=== PATIENT | male | born 1955 | race Caucasian/White ===

== ENCOUNTER → 2020-10-17 13:37 | Outpatient (CLI) | payer OTHER, SELFPAY ==
--- NOTE | 2020-10-17 13:39 | DI.RAD.S_ITS ---
PROCEDURE: XR KNEE LT 3V INDICATIONS: Bilateral knee pain TECHNIQUE: 3 views of the knee were acquired. COMPARISON: None. FINDINGS: Bones: No fractures or dislocations. No suspicious bony lesions. There is minimal medial/lateral and patellofemoral compartment narrowing. Soft tissues: Minimal to mild joint effusion. No suspicious soft tissue calcifications. IMPRESSION: Minimal to mild medial and lateral as well as patellofemoral compartment narrowing most consistent with arthritis.. Dictated by: Leola Gibbons M.D. on 10/17/2020 at 17:11 Approved by: Leola Gibbons M.D. on 10/17/2020 at 17:11
--- NOTE | 2020-10-17 13:39 | DI.RAD.S_ITS ---
PROCEDURE: XR KNEE RT 3V INDICATIONS: Bilateral knee pain TECHNIQUE: 3 views of the knee were acquired. COMPARISON: None. FINDINGS: Bones: No fractures or dislocations. No suspicious bony lesions. Minimal to mild medial, lateral patellofemoral compartment narrowing. No erosions. Soft tissues: Minimal to mild joint effusion. No suspicious soft tissue calcifications. IMPRESSION: Minimal mild tricompartmental arthritis. Dictated by: Leola Gibbons M.D. on 10/17/2020 at 17:12 Approved by: Leola Gibbons M.D. on 10/17/2020 at 17:12
== END ==
PROVIDERS: PCP Family Medicine; Referring Provider Family Medicine; Visit Provider Family Medicine
DX: M17.0 Bilateral primary osteoarthritis of knee (principal); M25.562 Pain in left knee; M25.561 Pain in right knee
CPT/HCPCS: 73562

== ENCOUNTER → 2020-10-19 10:14 | Outpatient (CLI) | payer OTHER, SELFPAY ==
[2020-10-19 11:18] LABS: Hemoglobin A1C% w Est Avg Glu 5.7 % (4.0-6.0)
[2020-10-19 11:37] LABS: Alanine Aminotransferase 32 IU/L (<50); Albumin 4.3 g/dL (3.5-5.0); Albumin Globulin Ratio 1.4 (1.0-2.8); Alkaline Phosphatase 67 U/L (38-126); Aspartate Aminotransferase 31 IU/L (17-59); BUN Creatinine Ratio 13.6 (6-22); Bilirubin Total 0.4 mg/dL (0.2-1.3); Blood Urea Nitrogen 19 mg/dL (9-20); Calcium 9.5 mg/dL (8.4-10.2); Carbon Dioxide 29 mmol/L (22-32); Chloride 102 mmol/L (98-107); Cholesterol 211 mg/dL (140-199); Globulin 3.1 g/dL (1.7-4.1); Glucose 93 mg/dL (80-110); HDL Cholesterol 39 mg/dL (40-60); HEMOLYSIS < 15 (0-50); LDL Cholesterol Calculated 141 mg/dL (<100); Potassium 4.5 mmol/L (3.4-5.1); Sodium 140 mmol/L (137-145); Total Protein 7.4 g/dL (6.3-8.2); Triglycerides 157 mg/dL (35-150)
[2020-10-19 12:08] LABS: Prostate Specific Antigen Scrn 0.957 ng/mL (0.1-4.0)
== END ==
PROVIDERS: PCP Family Medicine; Referring Provider Family Medicine; Visit Provider Family Medicine
DX: M17.0 Bilateral primary osteoarthritis of knee (principal); Z12.5 Encounter for screening for malignant neoplasm of prostate
CPT/HCPCS: 36415; 80053; 80061; 83036; G0103

== ENCOUNTER → 2020-11-16 16:07 | Outpatient (CLI) | payer OTHER, SELFPAY ==
--- NOTE | 2020-11-16 16:09 | DI.US.S_ITS ---
PROCEDURE: US ABDOMEN LIMITED INDICATIONS: right inguinal hernia TECHNIQUE: Real-time focused scanning was performed of the abdomen, with image documentation. COMPARISON: None. FINDINGS: No right inguinal hernia defect identified. Right testicle is within the right inguinal canal compatible with cryptorchidism. Right testicle measures 3.1 x 1.4 x 2.4 centimeters. Left testicle is normally situated within the scrotum. Left testicle measures 4.5 x 2.2 x 2.8 centimeters. IMPRESSION: Right cryptorchidism. Recommend urologic surgery consultation. Dictated by: Samantha Segal MD, PhD on 11/16/2020 at 17:01 Approved by: Samantha Segal MD, PhD on 11/16/2020 at 17:06
== END ==
PROVIDERS: PCP Family Medicine; Referring Provider Family Medicine; Visit Provider Family Medicine
DX: K40.90 Unilateral inguinal hernia, without obstruction or gangrene, not specified as recurrent (principal)
CPT/HCPCS: 76705

== ENCOUNTER → 2022-09-05 10:21 | Outpatient (CLI) | payer MEDICARE, OTHER, SELFPAY ==
[2022-09-05 11:24] LABS: Add Manual Diff / Slide Review NO; Basophils Absolute Auto 100 /uL (0-100); Eosinophils Absolute Auto 100 /uL (0-450); Eosinophils Percent Auto 2.2 % (2-4); Hematocrit 45.7 % (41-53); Hemoglobin 15.4 g/dL (13.5-17.5); Lymphocytes Absolute Auto 1700 /uL (1100-4500); Lymphocytes Percent Auto 26.7 % (25-40); Mean Corpuscular HGB Conc 33.7 % (30-36); Mean Corpuscular Hemoglobin 28.6 PG (26-34); Mean Corpuscular Volume 84.8 fL (80-100); Monocytes Absolute Auto 700 /uL (0-900); Monocytes Percent Auto 11.2 % (3-14); Neutrophils Absolute Auto 3700 /uL (1500-7000); Neutrophils Percent Auto 58.9 % (50-75); Platelet Count 219 X10^3/uL (150-400); Red Blood Cell Count 5.39 X10^6/uL (4.5-5.9); Red Cell Distribution Width 14.3 % (11.6-14.8); White Blood Cell Count 6.2 X10^3/uL (4.5-11.0)
[2022-09-05 11:44] LABS: Alanine Aminotransferase 33 IU/L (<50); Albumin 4.4 g/dL (3.5-5.0); Albumin Globulin Ratio 1.1 (1.0-2.8); Alkaline Phosphatase 66 U/L (38-126); Aspartate Aminotransferase 31 IU/L (17-59); BUN Creatinine Ratio 18.1 (6-22); Bilirubin Total 0.7 mg/dL (0.2-1.3); Blood Urea Nitrogen 21 mg/dL (9-20); Calcium 9.3 mg/dL (8.4-10.2); Carbon Dioxide 29 mmol/L (22-32); Chloride 101 mmol/L (98-107); Cholesterol 220 mg/dL (140-199); Estimated Glomerular Filt Rate > 60 mL/min (>60); Globulin 3.9 g/dL (1.7-4.1); Glucose 93 mg/dL (80-110); HDL Cholesterol 38 mg/dL (40-60); HEMOLYSIS < 15 (0-50); LDL Cholesterol Calculated 154 mg/dL (<100); Potassium 4.2 mmol/L (3.4-5.1); Sodium 142 mmol/L (137-145); Total Protein 8.3 g/dL (6.3-8.2); Triglycerides 141 mg/dL (35-150)
[2022-09-05 12:15] LABS: Prostate Specific Antigen Scrn 0.802 ng/mL (0.1-4.0)
[2022-09-05 12:18] LABS: TSH w/ Reflex to FT4 1.59 uIU/mL (0.47-4.68)
[2022-09-05 12:25] LABS: Creatinine Urine Random 25.5 mg/dL
[2022-09-05 12:30] LABS: Microalbumin Urine Random < 0.6 mg/dL (0-1.6)
== END ==
PROVIDERS: PCP Family Medicine; Referring Provider Family Medicine; Visit Provider Family Medicine
DX: E55.9 Vitamin D deficiency, unspecified (principal); E78.5 Hyperlipidemia, unspecified; Z12.5 Encounter for screening for malignant neoplasm of prostate; K21.9 Gastro-esophageal reflux disease without esophagitis; R79.89 Other specified abnormal findings of blood chemistry
CPT/HCPCS: 36415; 80053; 80061; 82043; 82570; 84443; 85025; G0103

== ENCOUNTER → 2022-10-01 06:28 | Outpatient (CLI) | payer MEDICARE, OTHER, SELFPAY ==
--- NOTE | 2022-10-01 06:29 | DI.US.S_ITS ---
PROCEDURE: US SCROTUM INDICATIONS: RIGHT GROIN LUMP. ACQUIRED CRYTPORCHIDISM. TECHNIQUE: Real-time scanning was performed of the scrotum and testicles, with image documentation. Color and pulse Doppler interrogation was performed of both testicles. COMPARISON: None. FINDINGS: Right: Testicle is normal in size at 3.4 x 2.4 x 1.8 cm, and homogenous in echotexture. Minimal vasculature. Epididymis is normal in overall size and morphology. No hydrocele or varicoceles. Overlying scrotal skin is normal in thickness. Left: Testicle is normal in size at 4.1 x 2.8 x 2.2 cm, and homogeneous in echotexture. Epididymis is normal in overall size and morphology. No hydrocele or varicoceles. Overlying scrotal skin is normal in thickness. Doppler: Color and pulse Doppler demonstrate normal and symmetric arterial flow in both testicles. Other: Fat containing right inguinal hernia, partially reducible. The neck measures 2.3 x 2.1 cm. IMPRESSION: 1. Fat containing right inguinal hernia, partially reducible. The neck measures 2.3 x 2.1 cm. 2. Normal location of the right testicle, without mass. Dictated by: Darren Tovar M.D. on 10/01/2022 at 10:33 Approved by: Darren Tovar M.D. on 10/01/2022 at 10:35
== END ==
PROVIDERS: PCP Family Medicine; Referring Provider Family Medicine; Visit Provider Family Medicine
DX: N50.89 Other specified disorders of the male genital organs (principal); K40.30 Unilateral inguinal hernia, with obstruction, without gangrene, not specified as recurrent
CPT/HCPCS: 76870; 93975

== ENCOUNTER 2022-10-02 07:40 | Day surgery (SDC) | payer MEDICARE, OTHER, SELFPAY ==
--- NOTE | 2022-10-02 | PATH_ITS ---
[facility] Accession Number: [id number] No. of containers..02 Tissue . 01 Material submitted: . PART A: colon - ASCENDING POLYPS PART B: colon - DESCENDING POLYP . 01 Clinical history: . COLONOSCOPY . 01 Diagnosis: A. Ascending Colon, Polyps, Biopsies: Tubular adenomas. . B. Descending Colon, Polyp, Biopsy: Hyperplastic polyp. [facility] 10/07/2022 1145 Local . 01 Electronically signed: . Soledad Alcocer MD, Pathologist NPI- [id number] . 01 Gross description: . A. Received in formalin, labeled ascending polyps, are 3-5 mm portions of wang tissue. Totally embedded in cassette A1. B. Received in formalin, labeled descending polyp, are three 1 mm and 2 mm portions of wang tissue. Totally embedded in cassette B1. ([id number]) /Paul 10/04/2022 1633 Local . 01 Pathologist provided ICD-10: D12.2 . 01 CPT . 996561, [id number] Specimen Comment: A courtesy copy of this report has been sent to [phone] Performed at: 01 [facility] [address] [place] [address] [id number] MD Bryan Mcneal MD Phone: [phone]
[2022-10-02 08:08] VITALS: BMI 32.5
[2022-10-02 08:20] VITALS: BP 129/79; PULSE 72; RESP 16; TEMP 36.4; O2SAT 97
[2022-10-02] MEDS: LACTATED RINGERS 1,000 ML 42 ML IV (08:23)
--- NOTE | 2022-10-02 09:05 | PM.HP.1 ---
History of Present Illness History of Present Illness Date Patient Seen: 10/02/22 Time Patient Seen: 09:05 Chief complaint: Colonoscopy Narrative: Nilesh is a 67 year man here for colonoscopy. His last 1 was about 10 years ago and was normal. He has no known family history of colon cancer. No GI or bowel issues. Patient History Medical History (Updated 10/02/22 @ 09:06 by Uziel Caldwell MD) Acquired cryptorchidism of right testis Actinic keratosis Chicken pox Elevated serum creatinine GERD (gastroesophageal reflux disease) Hyperlipidemia Trigger finger of right hand Vitamin D deficiency Surgical History (Updated 10/30/20 @ 22:40 by Bronwyn Bowles) Anesthesia History of hand surgery (~2014) History of testicular surgery (~1963) Family & Social History Family History (Updated 10/30/20 @ 22:41 by Bronwyn Bowles) Father Cancer Hypertension Hyperlipidemia Brother Hypertension Hyperlipidemia Brother Hypertension Hyperlipidemia Social History: household members spouse Tobacco & Substance use: Smoking Status Never smoker alcohol intake never Substance Use Type does not use Meds Home Medications and Allergies Home Medications Medication Instructions Recorded Confirmed Type cholecalciferol (vitamin D3) 125 125 mcg PO DAILY 10/17/20 10/02/22 History mcg (5,000 unit) capsule rabeprazole 20 mg tablet,delayed 40 mg PO DAILY #180 tabs 07/28/22 10/02/22 Rx release rosuvastatin 10 mg tablet (Crestor) 10 mg PO DAILY #90 tabs 09/05/22 10/02/22 Rx Allergies Allergy/AdvReac Type Severity Reaction Status Date / Time No Known Drug Allergies Allergy Verified 10/02/22 07:56 Exam Vital Signs (past 8 hours): - 10/02/22 08:20 Temperature 97.6 F Pulse Rate 72 Respiratory Rate 16 Blood Pressure 129/79 Pulse Oximetry 97 Oxygen Delivery Method Room Air Oxygen Delivery Method Room Air Const General: No acute distress Resp Effort & Inspection: normal respiratory effort Assessment & Plan Assessment and plan (1) Colon cancer screening: Status: Acute Plan Risks and benefits of colonoscopy reviewed and he would like to proceed. Time Spent With Patient Critical Care time: I spent a total of [] minutes of critical care time on this patient's care today; this time is exclusive of procedural time.
--- NOTE | 2022-10-02 09:36 | PM.OP.COLON ---
Operative Date/Time/Diagnoses Date of procedure: 10/02/22 Time of procedure: 09:36 Pre-op diagnosis: Colon cancer screening Post-op diagnosis: same Procedure & Clinicians Study performed: Colonoscopy Same procedure as scheduled: Yes Surgeon: Uziel Caldwell Procedure Notes Procedure in detail: Surgeon: Uzeil Caldwell MD Anesthesia: Jesús Perez CRNA Procedure: The patient was brought to the endoscopy suite, placed in left lateral decubitus position. The patient was connected to monitoring devices. A time-out was performed. Sedation was administered. Once the patient was adequately sedated, a digital rectal exam was performed and was normal. The scope was then inserted and advanced to the cecum where the appendiceal orifice was identified and photographed. The scope was then slowly withdrawn over greater than 6 minutes. The mucosa was thoroughly inspected. There were 2 7 mm polyps in the ascending colon removed with cold snare and sent together. There was a 4 mm polyp in the descending colon removed with a cold snare. The scope was retroflexed in the rectum. No other abnormalities were seen. The scope was straightened and removed. The patient was awakened and brought to recovery. Scope withdrawal time: 11 minutes Sedation time: 15 minutes EBL: 5 mL Findings: 2 7 mm polyps in the ascending colon and a 4 mm polyp in the descending colon Post-procedure Disposition: PACU
[2022-10-02 09:38] VITALS: BP 107/61; PULSE 68; RESP 12; TEMP 36.5; O2SAT 99
[2022-10-02 09:44] VITALS: PULSE 81; RESP 20; O2SAT 100
[2022-10-02 09:45] VITALS: BP 117/79
[2022-10-02 09:48] VITALS: BP 134/85; PULSE 69; RESP 15; TEMP 36.4; O2SAT 98
== END 2022-10-02 10:00 | disposition home or self-care (01) ==
PROVIDERS: PCP Family Medicine; Referring Provider Surgery; Visit Provider Surgery
PROC: 0DJD8ZZ Inspection of Lower Intestinal Tract, Via Natural or Artificial Opening Endoscopic (ICD-10-PCS; CPT 45378; principal; 2022-10-02 08:45)
DX: Z12.11 Encounter for screening for malignant neoplasm of colon (principal); D12.2 Benign neoplasm of ascending colon
CPT/HCPCS: 45385; J2704

== ENCOUNTER 2022-10-28 10:57 | Day surgery (SDC) | payer MEDICARE, OTHER, SELFPAY ==
[2022-10-21 08:32] VITALS: BMI 36.6
[2022-10-28] VITALS (8 sets, daily range): BP systolic 117–157; BP diastolic 64–87; PULSE 62–731; RESP 10–16; TEMP 36.4–37.1; O2SAT 94–98; BMI 36.6
[2022-10-28] MEDS: LACTATED RINGERS 1,000 ML 42 ML IV ×2 (11:34→13:09)
[2022-10-28] MEDS: ACETAMINOPHEN 325 MG TABLET 975 MG PO (11:34)
--- NOTE | 2022-10-28 11:58 | PM.PREOP ---
Pre-operative Note COVID-19 COVID-19 status: Not tested Interval Note History & Physical reviewed/Exam performed by Physician: Yes Changes to H&P: No ASA Class (for procedural sedation): II
[2022-10-28] MEDS: CEFAZOLIN 2 GM/100 ML PREMIX 100 ML IV (12:17)
--- NOTE | 2022-10-28 12:36 | SUR.OPER ---
Supine on padded OR bed, head on pillow, arms secured on padded arm boards at <90 degrees abduction, legs uncrossed, safety belt at thigh, tape over blanket over lower legs.
[2022-10-28] MEDS: BUPIVACAINE 0.25% (PF) 30 ML, EPINEPHrine 0.15 MG INJ (12:43)
--- NOTE | 2022-10-28 14:03 | PM.OP.1 ---
Operative Date/Time/Diagnoses Date of procedure: 10/28/22 Time of procedure: 14:03 Pre-op diagnosis: Right inguinal hernia Post-op diagnosis: same Procedure & Clinicians Procedure: Open right inguinal hernia repair with mesh Same procedure as scheduled: Yes Surgeon: Uziel Caldwell Operative Notes Procedure in detail: Preoperative antibiotic was administered. The patient was brought to the operating room and placed on the table in supine position general anesthesia was induced. The large right inguinal hernia was able to be partially reduced after induction of anesthesia. The right groin was prepped and draped in the normal fashion and a time-out was performed. Roughly 10 mL of local anesthetic were injected into the skin and subcutaneous adipose tissue over the right groin. A 9 cm incision was made over the right inguinal canal. Dissection was carried down through the subcutaneous adipose tissue. We exposed the external oblique aponeurosis in the direction of the fibers. Additional local was injected deep to the aponeurosis. A 15 blade scalpel was used to kasey the external oblique aponeurosis. Metzenbaum scissors were used to carefully open the aponeurosis in the direction of the fibers taking care not to injure the underlying ilioinguinal nerve. There was fibrosis from prior surgery which made the tissue planes somewhat difficult to identify initially. After tedious dissection the inguinal canal was completely exposed.. The cord was dissected free from the inguinal ligament and floor of the inguinal canal and the external oblique aponeurosis was dissected off of the internal oblique taking care not to injure the hypogastric nerve. We encircled the cord with a [place] drain for retraction. There was a large direct defect containing fat as well as a significant indirect component. The patient was placed in Trendelenburg and paralyzed to allow reduction of the hernia contents. The sac was opened to ensure there was no sliding component and amputated and closed with a running 3-0 Vicryl. The sac was allowed to drop back into the abdomen. We then placed a polypropylene mesh against the floor of the inguinal canal. The mesh was secured with multiple interrupted 3-0 Prolene sutures to the pubic tubercle and shelving edge of the inguinal ligament as well as to the conjoint tendon medially. We overlapped the tails to recreate an internal ring and secured the medial tail to the inguinal ligament with additional sutures. We injected some more local into the fatty tissue in the inguinal canal and cord. Finally, we removed the [place] drain and closed the external oblique fascia with a running 3-0 Vicryl suture. Skin was closed with interrupted 3-0 Vicryl dermal sutures and a running 4 Monocryl subcuticular stitch. At the conclusion of the hernia repair Dr. Nye came into the room to examine the scrotum and determined that the right testicle was in the appropriate location and did not need additional pexy. EBL 15 mL The patient was awakened and brought to recovery room. Post-operative Condition: stable Disposition: PACU
[2022-10-28] MEDS: OXYCODONE IR 5 MG TABLET PO ×2 (14:35→15:09)
--- NOTE | 2022-10-28 14:37 | SUR.PHASEI ---
Pt received to PACU after general anesthesia. Oral airway in place. No further airway support required. Report received from DIPTI Webb and Valentín Beauchamp CRNA.
== END 2022-10-28 15:16 | disposition home or self-care (01) ==
PROVIDERS: PCP Family Medicine; Referring Provider Surgery; Visit Provider Surgery
PROC: (CPT 49505; principal; 2022-10-28 12:15)
DX: K40.90 Unilateral inguinal hernia, without obstruction or gangrene, not specified as recurrent (principal)
CPT/HCPCS: 49505; 82962; J0171; J0330; J0690; J1100; J2405; J2704; J3010

== ENCOUNTER → 2023-03-20 11:41 | Outpatient (CLI) | payer MEDICARE, OTHER, SELFPAY ==
[2023-03-20 13:44] LABS: Cholesterol 146 mg/dL (140-199); HDL Cholesterol 40 mg/dL (40-60); LDL Cholesterol Calculated 88 mg/dL (<100); Triglycerides 90 mg/dL (35-150)
== END ==
PROVIDERS: PCP Family Medicine; Referring Provider Family Medicine; Visit Provider Family Medicine
DX: E78.5 Hyperlipidemia, unspecified (principal)
CPT/HCPCS: 36415; 80061

== ENCOUNTER → 2023-12-31 15:53 | Outpatient (CLI) | payer MEDICARE, OTHER, SELFPAY ==
--- NOTE | 2023-12-31 15:55 | DI.RAD.S_ITS ---
PROCEDURE: XR HIP W PEL IF DONE WINTER MIN 4V INDICATIONS: bilateral hip pain TECHNIQUE: AP pelvis with lateral views of the right and left hips. COMPARISON: None. FINDINGS: Bones: No acute fractures or dislocations. Pelvic ring appears intact. No suspicious bony lesions. Minimal degenerative spurring at the lateral acetabular. Mild degenerative changes are seen in the lumbar spine. Soft tissues: The visualized bowel gas pattern is normal. No suspicious soft tissue calcifications. IMPRESSION: Minimal osteoarthrosis. No acute osseous abnormality. If symptoms persist or if there is continued clinical concern, cross-sectional imaging such as MRI or CT may be helpful for further evaluation. Approved by: Hiren Pablo M.D. on 12/31/2023 at 22:02
== END ==
PROVIDERS: PCP Family Medicine; Referring Provider Family Medicine; Visit Provider Family Medicine
DX: M25.551 Pain in right hip (principal); M25.552 Pain in left hip
CPT/HCPCS: 73522

== ENCOUNTER → 2024-01-06 07:20 | Outpatient (CLI) | payer MEDICARE, OTHER, SELFPAY ==
[2024-01-06 07:53] LABS: Add Manual Diff / Slide Review NO; Basophils Absolute Auto 0 /uL (0-100); Basophils Percent Auto 0.6 % (0-2); Eosinophils Absolute Auto 200 /uL (0-450); Eosinophils Percent Auto 3.1 % (2-4); Hematocrit 42.8 % (41-53); Hemoglobin 14.3 g/dL (13.5-17.5); Lymphocytes Absolute Auto 1300 /uL (1100-4500); Lymphocytes Percent Auto 26.7 % (25-40); Mean Corpuscular HGB Conc 33.3 % (30-36); Mean Corpuscular Hemoglobin 28.6 PG (26-34); Mean Corpuscular Volume 85.8 fL (80-100); Monocytes Absolute Auto 700 /uL (0-900); Monocytes Percent Auto 13.5 % (3-14); Neutrophils Absolute Auto 2800 /uL (1500-7000); Neutrophils Percent Auto 56.1 % (50-75); Platelet Count 203 X10^3/uL (150-400); Red Blood Cell Count 4.99 X10^6/uL (4.5-5.9); Red Cell Distribution Width 14.5 % (11.6-14.8)
[2024-01-06 08:15] LABS: Creatinine Urine Random 169.56 mg/dL
[2024-01-06 08:19] LABS: Alanine Aminotransferase 30 IU/L (<50); Albumin 4.1 g/dL (3.5-5.0); Albumin Globulin Ratio 1.5 (1.0-2.8); Alkaline Phosphatase 60 U/L (38-126); Aspartate Aminotransferase 32 IU/L (17-59); BUN Creatinine Ratio 15.5 (6-22); Bilirubin Total 0.8 mg/dL (0.2-1.3); Blood Urea Nitrogen 18 mg/dL (9-20); Calcium 8.6 mg/dL (8.4-10.2); Carbon Dioxide 30 mmol/L (22-32); Chloride 107 mmol/L (98-107); Cholesterol 139 mg/dL (140-199); Estimated Glomerular Filt Rate > 60 mL/min (>60); Globulin 2.8 g/dL (1.7-4.1); Glucose 98 mg/dL (80-110); HDL Cholesterol 40 mg/dL (40-60); HEMOLYSIS < 15 (0-50); LDL Cholesterol Calculated 80 mg/dL (<100); Sodium 141 mmol/L (137-145); Total Protein 6.9 g/dL (6.3-8.2); Triglycerides 97 mg/dL (35-150)
[2024-01-06 08:22] LABS: Microalbumin Urine Random < 0.6 mg/dL (0-1.6)
[2024-01-06 08:44] LABS: Prostate Specific Antigen Scrn 0.608 ng/mL (0.1-4.0)
[2024-01-06 09:05] LABS: Hep C Virus Ab w/Reflex Quant NEGATIVE s/c (NEGATIVE)
== END ==
PROVIDERS: PCP Family Medicine; Referring Provider Family Medicine; Visit Provider Family Medicine
DX: Z12.5 Encounter for screening for malignant neoplasm of prostate (principal); E78.5 Hyperlipidemia, unspecified; E55.9 Vitamin D deficiency, unspecified; K21.9 Gastro-esophageal reflux disease without esophagitis; R03.0 Elevated blood-pressure reading, without diagnosis of hypertension; M25.551 Pain in right hip; M25.552 Pain in left hip
CPT/HCPCS: 36415; 80053; 80061; 82043; 82570; 85025; 86803; G0103

== ENCOUNTER → 2024-05-03 17:05 | Outpatient (CLI) | payer MEDICARE, OTHER, SELFPAY ==
[2024-05-03 18:30] LABS: Appearance Urine UA CLEAR; Bilirubin Urine UA NEGATIVE (NEGATIVE); Color Urine UA YELLOW; Glucose Urine UA NEGATIVE (Negative); Ketones Urine UA NEGATIVE (NEGATIVE); Leukocyte Esterase Urine UA NEGATIVE (NEGATIVE); Nitrite Urine UA NEGATIVE (Negative); Occult Blood Urine UA NEGATIVE (Negative); Protein Urine UA NEGATIVE (Negative); Specific Gravity Urine UA <=1.005 (1.000-1.035); Urobilinogen Urine UA 0.2 E.U./dL (0.2); pH Urine UA 6.5 (4.5-8.0)
[2024-05-03 20:25] LABS: Bacteria Urine None Seen; Culture Indicated Urine Cult Not Indicated; RBC Urine None Seen (0-5/HPF); Squamous Epithelial Cell Urine None Seen (0-5/HPF); Urine Volume 10mL (spun); WBC Urine None Seen (0-5/HPF)
== END ==
LOC: LAB 17:06
PROVIDERS: PCP Family Medicine; Referring Provider Family Medicine; Visit Provider Family Medicine
DX: R39.15 Urgency of urination (principal)
CPT/HCPCS: 81001

== ENCOUNTER → 2024-05-11 15:16 | Outpatient (CLI) | payer MEDICARE, OTHER, SELFPAY | PROVIDERS: PCP Family Medicine; Visit Provider Physician Assistant | DX: R39.15 Urgency of urination (principal) | CPT/HCPCS: 87086 ==

== ENCOUNTER → 2025-02-28 16:09 | Outpatient (CLI) | payer MEDICARE, OTHER, SELFPAY ==
[2025-02-28 16:48] LABS: Add Manual Diff / Slide Review NO; Hematocrit 43.4 % (41-53); Hemoglobin 14.6 g/dL (13.5-17.5); Lymphocytes Absolute Auto 1400 /uL (1100-4500); Mean Corpuscular HGB Conc 33.7 % (30-36); Mean Corpuscular Hemoglobin 29.1 PG (26-34); Mean Corpuscular Volume 86.1 fL (80-100); Platelet Count 209 X10^3/uL (150-400)
[2025-02-28 17:29] LABS: Alanine Aminotransferase 22 IU/L (<50); Albumin 4.2 g/dL (3.5-5.0); Albumin Globulin Ratio 1.4 (1.0-2.8); Alkaline Phosphatase 70 U/L (38-126); Blood Urea Nitrogen 22 mg/dL (9-20); Calcium 9.2 mg/dL (8.4-10.2); Carbon Dioxide 27 mmol/L (22-32); Chloride 104 mmol/L (98-107); Cholesterol 127 mg/dL (140-199); Estimated Glomerular Filt Rate > 60 mL/min (>60); Globulin 2.9 g/dL (1.7-4.1); Glucose 94 mg/dL (70-99); HDL Cholesterol 36 mg/dL (40-60); HEMOLYSIS < 15 (0-50); Potassium 4.4 mmol/L (3.4-5.1); Sodium 139 mmol/L (137-145); Total Protein 7.1 g/dL (6.3-8.2); Triglycerides 137 mg/dL (35-150)
[2025-02-28 17:49] LABS: Vitamin D 25 Hydroxy (D3) 56.4 ng/mL (30.0-100.0)
[2025-02-28 18:00] LABS: TSH w/ Reflex to FT4 0.92 uIU/mL (0.47-4.68)
[2025-02-28 21:27] LABS: Hep C Virus Ab w/Reflex Quant NEGATIVE s/c (NEGATIVE)
== END ==
PROVIDERS: PCP Family Medicine; Referring Provider Family Medicine; Visit Provider Family Medicine
DX: Z00.00 Encounter for general adult medical examination without abnormal findings (principal); E78.2 Mixed hyperlipidemia; Z12.5 Encounter for screening for malignant neoplasm of prostate; E55.9 Vitamin D deficiency, unspecified; K21.9 Gastro-esophageal reflux disease without esophagitis
CPT/HCPCS: 36415; 80053; 80061; 82306; 84443; 85025; 86803; G0103